=== PATIENT | female | born 1940 | race Caucasian/White ===

== ENCOUNTER 2023-04-08 16:32 | Observation (INO) | payer OTHER ==
[2023-04-08] MEDS ORDERED: ACETAMINOPHEN 500 MG TABLET (FP) PO ONE (17:30)
[2023-04-08] MEDS ORDERED: ACETAMINOPHEN 1000 MG/100 ML BAG IVPB ONE (18:30)
[2023-04-08] MEDS ORDERED: ACETAMINOPHEN INJECTION 100 ML IVPB ONE (18:30)
[2023-04-08 19:03] LABS: BASO % 0.8 % (0-2.0); EOS % 2.7 % (0-4.5); HEMATOCRIT 39.4 % (32.4-45.2); LYMPH % 21.4 % (8-40); MCH 29.3 pg (25.7-33.7); MCHC 33.1 g/dl (32.0-36.0); MEAN CELL VOLUME 88.4 fl (80-96); MEAN PLT VOLUME 8.5 fl (7.5-11.1); NEUT % 68.1 % (42.8-82.8); PLATELET COUNT 225 10^3/uL (134-434); RBC 4.45 M/mm3 (3.60-5.2); RDW 14.3 % (11.6-15.6); WHITE BLOOD COUNT 6.4 K/mm3 (4.0-10.0)
[2023-04-08 19:10] LABS: INR 0.97 (0.83-1.09); PROTHROMBIN TIME (PATIENT) 11.2 SEC (9.7-13.0)
[2023-04-08 19:12] LABS: ACTIVATED PTT 34.3 SECONDS (25.2-36.5)
[2023-04-08 19:35] LABS: CALCIUM 9.1 mg/dL (8.5-10.1)
[2023-04-08 19:36] LABS: BLOOD UREA NITROGEN 18.2 mg/dL (7-18); MAGNESIUM 2.5 mg/dL (1.8-2.4)
[2023-04-08 19:39] LABS: PHOSPHOROUS 3.3 mg/dL (2.5-4.9)
[2023-04-08 19:41] LABS: BILIRUBIN,TOTAL 0.3 mg/dL (0.2-1)
[2023-04-08] MEDS ORDERED: DIPHTH,PERTUSS(ACELL),TET 0.5 ML DISP.SYRIN IM ONE ×2 (19:47→20:44)
[2023-04-08 20:01] LABS: EPI CELLS 5 /uL (0-25.1); HYALINE CASTS 0 /uL (0-3.1); URINE APPEARANCE CLEAR; URINE BACTERIA 177 /uL (0-1359); URINE BILIRUBIN NEGATIVE (NEGATIVE); URINE COLOR YELLOW; URINE GLUCOSE (UA) NEGATIVE (NEGATIVE); URINE KETONE NEGATIVE (NEGATIVE); URINE LEUK ESTERASE 3+ (NEGATIVE); URINE NITRITE NEGATIVE (NEGATIVE); URINE PROTEIN NEGATIVE (NEGATIVE); URINE RBC 7 /uL (0-23.9); URINE UROBILINOGEN 0.2 mg/dL (0.2-1.0); URINE WBC 133 /uL (0-25.8)
[2023-04-08] MEDS ORDERED: NITROFURANTOIN MACROCRYSTAL 50 MG CAPSULE (FP) PO ONE (20:30)
[2023-04-08] MEDS ORDERED: NITROFURANTOIN MACROCRYSTAL 50 MG CAPSULE (FP) ONE (20:44)
[2023-04-09] MEDS ORDERED: SODIUM CHLORIDE 1,000 ML IV SCH (00:45)
[2023-04-09] MEDS ORDERED: LEVOTHYROXINE NA 75 MCG TABLET (FP) ONE (07:19)
[2023-04-09] MEDS: LEVOTHYROXINE NA 75 MCG TABLET (FP) PO SCH (07:22)
[2023-04-09] MEDS ORDERED: CEFTRIAXONE 1 GM/50 ML BAG ONE (09:48)
[2023-04-09] MEDS: ENOXAPARIN NA (PORCINE) 40 MG/0.4 ML DISP.SYRIN SQ SCH (09:57)
[2023-04-09] MEDS: CEFTRIAXONE 1 GM in DEXTROSE 5%-WATER - 50 ML IVPB SCH (09:57)
[2023-04-09] MEDS: SERTRALINE HCL 50 MG TABLET (FP) PO SCH (09:57)
[2023-04-09] MEDS: TOPIRAMATE 25 MG TABLET PO SCH ×2 (09:57→21:56)
[2023-04-09] MEDS: metoPROLOL SUCCINATE 25 MG TAB.SR.24H (FP) PO SCH (09:57)
[2023-04-09 11:15] LABS: HEMATOCRIT 36.7 % (32.4-45.2); HEMOGLOBIN 12.3 GM/dL (10.7-15.3); MCH 29.8 pg (25.7-33.7); MCHC 33.6 g/dl (32.0-36.0); MEAN CELL VOLUME 88.5 fl (80-96); MEAN PLT VOLUME 8.3 fl (7.5-11.1); PLATELET COUNT 208 10^3/uL (134-434); RBC 4.15 M/mm3 (3.60-5.2); RDW 14.2 % (11.6-15.6); WHITE BLOOD COUNT 4.4 K/mm3 (4.0-10.0)
[2023-04-09 12:01] LABS: POTASSIUM 3.9 mmol/L (3.5-5.1)
[2023-04-09 12:04] LABS: ALBUMIN 3.5 g/dl (3.4-5.0); BLOOD UREA NITROGEN 15.3 mg/dL (7-18); CALCIUM 8.7 mg/dL (8.5-10.1); MAGNESIUM 2.3 mg/dL (1.8-2.4)
[2023-04-09 12:07] LABS: CREATININE 0.9 mg/dL (0.55-1.3); PHOSPHOROUS 3.1 mg/dL (2.5-4.9)
[2023-04-09 12:08] LABS: BILIRUBIN,TOTAL 0.4 mg/dL (0.2-1); TOT PROT 6.6 g/dl (6.4-8.2)
[2023-04-09 13:01] VITALS: BMI 25.7
[2023-04-09] MEDS: ACETAMINOPHEN 325 MG TABLET (FP) PO PRN (18:19)
[2023-04-10] MEDS: LEVOTHYROXINE NA 75 MCG TABLET (FP) PO SCH (06:20)
[2023-04-10 09:22] LABS: CHOLESTEROL 229 mg/dL (50-200)
[2023-04-10 09:23] LABS: LDL CHOLESTEROL (ONLY SJRH) 127 mg/dL (5-100)
[2023-04-10] MEDS: CEFTRIAXONE 1 GM in DEXTROSE 5%-WATER - 50 ML IVPB SCH (09:25)
[2023-04-10] MEDS: ENOXAPARIN NA (PORCINE) 40 MG/0.4 ML DISP.SYRIN SQ SCH (09:25)
[2023-04-10 09:26] LABS: HDL CHOLESTEROL 71 mg/dL (40-60)
[2023-04-10] MEDS: ACETAMINOPHEN 325 MG TABLET (FP) PO PRN (09:26)
[2023-04-10] MEDS: metoPROLOL SUCCINATE 25 MG TAB.SR.24H (FP) PO SCH (09:26)
[2023-04-10] MEDS: TOPIRAMATE 25 MG TABLET PO SCH ×2 (09:26→21:31)
[2023-04-10] MEDS: SERTRALINE HCL 50 MG TABLET (FP) PO SCH (09:26)
[2023-04-10] MEDS: RIZATRIPTAN 5 MG PO PRN (18:46)
[2023-04-10] MEDS: ATORVASTATIN CA 20 MG TABLET (FP) PO SCH (21:31)
[2023-04-11] MEDS: LEVOTHYROXINE NA 75 MCG TABLET (FP) PO SCH (06:17)
[2023-04-11 09:04] LABS: HEMATOCRIT 37.5 % (32.4-45.2); HEMOGLOBIN 12.2 GM/dL (10.7-15.3); MCH 29.3 pg (25.7-33.7); MCHC 32.5 g/dl (32.0-36.0); MEAN CELL VOLUME 90.1 fl (80-96); MEAN PLT VOLUME 8.4 fl (7.5-11.1); PLATELET COUNT 218 10^3/uL (134-434); RBC 4.16 M/mm3 (3.60-5.2); RDW 14.1 % (11.6-15.6); WHITE BLOOD COUNT 3.4 K/mm3 (4.0-10.0)
[2023-04-11] MEDS: ENOXAPARIN NA (PORCINE) 40 MG/0.4 ML DISP.SYRIN SQ SCH (09:16)
[2023-04-11] MEDS: CEFTRIAXONE 1 GM in DEXTROSE 5%-WATER - 50 ML IVPB SCH (09:16)
[2023-04-11] MEDS: SERTRALINE HCL 50 MG TABLET (FP) PO SCH (09:17)
[2023-04-11] MEDS: TOPIRAMATE 25 MG TABLET PO SCH ×2 (09:17→21:08)
[2023-04-11] MEDS: metoPROLOL SUCCINATE 25 MG TAB.SR.24H (FP) PO SCH (09:17)
[2023-04-11 09:25] LABS: POTASSIUM 4.5 mmol/L (3.5-5.1)
[2023-04-11 09:32] LABS: CALCIUM 8.3 mg/dL (8.5-10.1)
[2023-04-11 09:35] LABS: CREATININE 0.9 mg/dL (0.55-1.3)
[2023-04-11] MEDS: ACETAMINOPHEN 325 MG TABLET (FP) PO PRN ×2 (10:55→18:56)
[2023-04-11 18:44] VITALS: RESP 18
[2023-04-11] MEDS: ATORVASTATIN CA 20 MG TABLET (FP) PO SCH (21:08)
[2023-04-12] MEDS: RIZATRIPTAN 5 MG PO PRN (05:47)
[2023-04-12] MEDS: CEFTRIAXONE 1 GM in DEXTROSE 5%-WATER - 50 ML IVPB SCH (10:47)
[2023-04-12] MEDS: SERTRALINE HCL 50 MG TABLET (FP) PO SCH (14:14)
[2023-04-12] MEDS: ENOXAPARIN NA (PORCINE) 40 MG/0.4 ML DISP.SYRIN SQ SCH (14:15)
[2023-04-12] MEDS: metoPROLOL SUCCINATE 25 MG TAB.SR.24H (FP) PO SCH (14:15)
[2023-04-12] MEDS: LEVOTHYROXINE NA 75 MCG TABLET (FP) PO SCH (14:15)
[2023-04-12] MEDS: TOPIRAMATE 25 MG TABLET PO SCH (14:15)
[2023-04-12 18:32] VITALS: BP 141/98; PULSE 79; TEMP 98.8
== END 2023-04-12 18:00 | disposition home or self-care (01) ==
LOC: JER 16:32 → UNDOADMOB 18:41 → JERBED 18:41 → OBSVTOIN 04-09 00:11 → INTOOBSV 04-09 00:11 → JERBED 04-09 10:33 → J5S 04-09 10:36
PROVIDERS: ADMIT Internal Medicine
PROC: 3E033NZ Introduction of Analgesics, Hypnotics, Sedatives into Peripheral Vein, Percutaneous Approach (ICD-10-PCS; principal; 2023-04-09)
PROC: 3E0234Z Introduction of Serum, Toxoid and Vaccine into Muscle, Percutaneous Approach (ICD-10-PCS; 2023-04-09)
PROC: 3E0337Z Introduction of Electrolytic and Water Balance Substance into Peripheral Vein, Percutaneous Approach (ICD-10-PCS; 2023-04-09)
DX: S05.11XA Contusion of eyeball and orbital tissues, right eye, initial encounter (principal); G43.909 Migraine, unspecified, not intractable, without status migrainosus; N39.0 Urinary tract infection, site not specified; R55 Syncope and collapse; R07.1 Chest pain on breathing; R06.00 Dyspnea, unspecified; Z91.09 Other allergy status, other than to drugs and biological substances; W18.39XA Other fall on same level, initial encounter; Y93.89 Activity, other specified; Y92.410 Unspecified street and highway as the place of occurrence of the external cause; Z23 Encounter for immunization; F41.8 Other specified anxiety disorders; I10 Essential (primary) hypertension; H91.90 Unspecified hearing loss, unspecified ear
CPT/HCPCS: 0241U-QW; 36415; 70450-TC; 70480-TC; 71045-TC-FY; 71101-TC-LT-FY; 72125-TC; 80048; 80053; 80061; 81003; 83735; 83880; 84100; 84436; 84443; 84484; 85025; 85027; 85610; 85730; 86850; 86900; 86901; 87086; 90471; 90715; 93005; 93010; 93225; 93226; 93306-TC; 93880-TC; 96361; 96365; 96375; 97116-GP; 97162-GP; 99285-25; G0378

== ENCOUNTER 2023-06-05 06:55 | Observation (INO) | payer OTHER ==
[2023-06-05] MEDS ORDERED: SODIUM CHLORIDE 1,000 ML IV STA (07:37)
[2023-06-05] MEDS ORDERED: FAMOTIDINE 20 MG/50 ML IVPB 20 MG/50 ML MG IVPB ONE ×3 (07:37→09:02)
[2023-06-05] MEDS ORDERED: ONDANSETRON 4 MG/2 ML VIAL IVPUSH ONE (07:44)
[2023-06-05] MEDS ORDERED: ONDANSETRON 4 MG/2 ML VIAL ONE ×2 (08:06→09:01)
[2023-06-05 09:40] LABS: POTASSIUM 4.3 mmol/L (3.5-5.1)
[2023-06-05 09:42] LABS: CALCIUM 9.1 mg/dL (8.5-10.1)
[2023-06-05 09:43] LABS: ALBUMIN 3.5 g/dl (3.4-5.0); BLOOD UREA NITROGEN 23.3 mg/dL (7-18)
[2023-06-05 09:44] LABS: INR 0.95 (0.83-1.09)
[2023-06-05 09:47] LABS: ACTIVATED PTT 28.6 SECONDS (25.2-36.5); BILIRUBIN,TOTAL 0.4 mg/dL (0.2-1); TOT PROT 6.7 g/dl (6.4-8.2)
[2023-06-05 09:53] LABS: HEMATOCRIT 40.5 % (32.4-45.2); HEMOGLOBIN 13.4 GM/dL (10.7-15.3); MCH 29.6 pg (25.7-33.7); MEAN CELL VOLUME 89.8 fl (80-96); MEAN PLT VOLUME 8.4 fl (7.5-11.1); PLATELET COUNT 209 10^3/uL (134-434); RBC 4.51 M/mm3 (3.60-5.2); RDW 14.7 % (11.6-15.6); WHITE BLOOD COUNT 7.2 K/mm3 (4.0-10.0)
[2023-06-05 10:40] LABS: ANISOCYTOSIS 2+; MACROCYTOSIS 0
[2023-06-05] MEDS ORDERED: ENOXAPARIN NA (PORCINE) 40 MG/0.4 ML DISP.SYRIN SQ ONE ×2 (16:59→17:14)
[2023-06-05] MEDS ORDERED: CEFTRIAXONE 1 GM/50 ML BAG ONE ×2 (16:59→17:14)
[2023-06-05] MEDS: CEFTRIAXONE 1 GM in DEXTROSE 5%-WATER - 50 ML IVPB SCH (17:29)
[2023-06-05] MEDS: ENOXAPARIN NA (PORCINE) 40 MG/0.4 ML DISP.SYRIN SQ SCH (17:29)
[2023-06-05] MEDS ORDERED: SUCRALFATE 1 GM/10 ML UNIT DOSE CUPS PO SCH (22:00)
[2023-06-06] MEDS ORDERED: TOPIRAMATE 25 MG TABLET PO SCH (08:00)
[2023-06-06] MEDS ORDERED: CEFTRIAXONE 1 GM/50 ML BAG ONE (09:04)
[2023-06-06] MEDS ORDERED: buPROPion HCL 100 MG TABLET ONE (09:04)
[2023-06-06] MEDS ORDERED: ENOXAPARIN NA (PORCINE) 40 MG/0.4 ML DISP.SYRIN SQ ONE (09:04)
[2023-06-06] MEDS ORDERED: TOPIRAMATE 25 MG TABLET ONE (09:04)
[2023-06-06] MEDS ORDERED: METOPROLOL TARTRATE 25 MG TABLET (FP) ONE (09:36)
[2023-06-06] MEDS ORDERED: LEVOTHYROXINE NA 75 MCG TABLET (FP) ONE (09:36)
[2023-06-06] MEDS: CEFTRIAXONE 1 GM in DEXTROSE 5%-WATER - 50 ML IVPB SCH (09:38)
[2023-06-06] MEDS: SUCRALFATE 1 GM/10 ML UNIT DOSE CUPS PO SCH ×2 (09:49→16:43)
[2023-06-06] MEDS: ENOXAPARIN NA (PORCINE) 40 MG/0.4 ML DISP.SYRIN SQ SCH (09:49)
[2023-06-06] MEDS: LEVOTHYROXINE NA 75 MCG TABLET (FP) PO SCH (09:49)
[2023-06-06] MEDS: metoPROLOL SUCCINATE 25 MG TAB.SR.24H (FP) PO SCH (09:49)
[2023-06-06] MEDS ORDERED: ACETAMINOPHEN 1000 MG/100 ML BAG IVPB ONE (21:21)
[2023-06-06] MEDS ORDERED: ACETAMINOPHEN INJECTION 100 ML IVPB ONE (21:32)
[2023-06-07] MEDS: LEVOTHYROXINE NA 75 MCG TABLET (FP) PO SCH (06:34)
[2023-06-07] MEDS: SUCRALFATE 1 GM/10 ML UNIT DOSE CUPS PO SCH ×2 (06:35→17:41)
[2023-06-07] MEDS: ENOXAPARIN NA (PORCINE) 40 MG/0.4 ML DISP.SYRIN SQ SCH (09:46)
[2023-06-07] MEDS: metoPROLOL SUCCINATE 25 MG TAB.SR.24H (FP) PO SCH (09:47)
[2023-06-07] MEDS: CEFTRIAXONE 1 GM in DEXTROSE 5%-WATER - 50 ML IVPB SCH (09:47)
[2023-06-07] MEDS: DEXTROSE 5%-0.45% SALINE 1,000 ML IV SCH (10:15)
[2023-06-07 10:47] LABS: BASO % 0.5 % (0-2.0); EOS % 3.8 % (0-4.5); HEMATOCRIT 37.3 % (32.4-45.2); HEMOGLOBIN 12.3 GM/dL (10.7-15.3); LYMPH % 23.4 % (8-40); MCH 29.7 pg (25.7-33.7); MCHC 33.1 g/dl (32.0-36.0); MEAN CELL VOLUME 89.8 fl (80-96); MEAN PLT VOLUME 8.4 fl (7.5-11.1); MONO % 9.5 % (3.8-10.2); NEUT % 62.8 % (42.8-82.8); PLATELET COUNT 208 10^3/uL (134-434); RBC 4.16 M/mm3 (3.60-5.2); WHITE BLOOD COUNT 3.7 K/mm3 (4.0-10.0)
[2023-06-07 11:04] LABS: POTASSIUM 3.6 mmol/L (3.5-5.1)
[2023-06-07 11:10] LABS: BLOOD UREA NITROGEN 13.8 mg/dL (7-18); CALCIUM 8.3 mg/dL (8.5-10.1)
[2023-06-07 11:13] LABS: CREATININE 0.7 mg/dL (0.55-1.3)
[2023-06-07 11:15] LABS: BILIRUBIN,TOTAL 0.1 mg/dL (0.2-1)
[2023-06-07] MEDS: VANCOMYCIN ORAL SOLUTION 125 MG/2.5 ML PO SCH ×2 (12:21→17:42)
[2023-06-07 14:59] VITALS: BMI 21.9
[2023-06-07 15:31] LABS: EPI CELLS 11 /uL (0-25.1); HYALINE CASTS 0 /uL (0-3.1); PH,URINE 6.5 (5.0-8.0); URINE APPEARANCE CLEAR; URINE BACTERIA 5 /uL (0-1359); URINE BILIRUBIN NEGATIVE (NEGATIVE); URINE COLOR YELLOW; URINE GLUCOSE (UA) NEGATIVE (NEGATIVE); URINE KETONE NEGATIVE (NEGATIVE); URINE LEUK ESTERASE TRACE (NEGATIVE); URINE NITRITE NEGATIVE (NEGATIVE); URINE PROTEIN NEGATIVE (NEGATIVE); URINE RBC 15 /uL (0-23.9); URINE UROBILINOGEN 0.2 mg/dL (0.2-1.0); URINE WBC 19 /uL (0-25.8)
[2023-06-08] MEDS: VANCOMYCIN ORAL SOLUTION 125 MG/2.5 ML PO SCH ×3 (00:06→11:33)
[2023-06-08] MEDS: DEXTROSE 5%-0.45% SALINE 1,000 ML IV SCH ×2 (02:14→09:30)
[2023-06-08] MEDS: LEVOTHYROXINE NA 75 MCG TABLET (FP) PO SCH (06:45)
[2023-06-08] MEDS: SUCRALFATE 1 GM/10 ML UNIT DOSE CUPS PO SCH (06:45)
[2023-06-08] MEDS: metoPROLOL SUCCINATE 25 MG TAB.SR.24H (FP) PO SCH (09:27)
[2023-06-08] MEDS: ENOXAPARIN NA (PORCINE) 40 MG/0.4 ML DISP.SYRIN SQ SCH (09:27)
[2023-06-08 10:39] LABS: BASO % 0.7 % (0-2.0); EOS % 4.2 % (0-4.5); HEMOGLOBIN 12.4 GM/dL (10.7-15.3); LYMPH % 34.4 % (8-40); MCH 29.5 pg (25.7-33.7); MCHC 32.6 g/dl (32.0-36.0); MEAN CELL VOLUME 90.6 fl (80-96); MEAN PLT VOLUME 8.6 fl (7.5-11.1); MONO % 10.5 % (3.8-10.2); NEUT % 50.2 % (42.8-82.8); PLATELET COUNT 205 10^3/uL (134-434); RBC 4.19 M/mm3 (3.60-5.2); RDW 14.2 % (11.6-15.6); WHITE BLOOD COUNT 3.2 K/mm3 (4.0-10.0)
[2023-06-08 10:53] LABS: POTASSIUM 3.6 mmol/L (3.5-5.1)
[2023-06-08 10:56] LABS: BLOOD UREA NITROGEN 8.8 mg/dL (7-18); CALCIUM 8.1 mg/dL (8.5-10.1)
[2023-06-08 11:00] LABS: CREATININE 0.7 mg/dL (0.55-1.3)
[2023-06-08] MEDS ORDERED: INSULIN (NOVOLOG) ASPART 100 UNITS/ML 10ML VIAL ONE (11:32)
[2023-06-08 14:22] VITALS: BP 132/62; PULSE 72; RESP 20; TEMP 98.2
== END 2023-06-08 14:23 | disposition home or self-care (01) ==
LOC: JER 06:55 → JERBED 14:40 → J8W 06-06 23:50
PROVIDERS: ADMIT Internal Medicine; ATTEND Nurse Practitioner Family
PROC: 3E033GC Introduction of Other Therapeutic Substance into Peripheral Vein, Percutaneous Approach (ICD-10-PCS; principal; 2023-06-05)
PROC: 3E013GC Introduction of Other Therapeutic Substance into Subcutaneous Tissue, Percutaneous Approach (ICD-10-PCS; 2023-06-05)
PROC: 3E0337Z Introduction of Electrolytic and Water Balance Substance into Peripheral Vein, Percutaneous Approach (ICD-10-PCS; 2023-06-05)
DX: K52.9 Noninfective gastroenteritis and colitis, unspecified (principal); R53.1 Weakness; I10 Essential (primary) hypertension; F41.9 Anxiety disorder, unspecified; F32.A Depression, unspecified; H91.90 Unspecified hearing loss, unspecified ear; R10.9 Unspecified abdominal pain; N39.0 Urinary tract infection, site not specified; R73.9 Hyperglycemia, unspecified; A08.4 Viral intestinal infection, unspecified; R55 Syncope and collapse; Z80.0 Family history of malignant neoplasm of digestive organs; E03.9 Hypothyroidism, unspecified; D73.5 Infarction of spleen; A04.72 Enterocolitis due to Clostridium difficile, not specified as recurrent
CPT/HCPCS: 0241U-QW; 36415; 71045-TC-FY; 74177-TC; 80048; 80053; 81003; 82378; 83605; 83690; 84484; 85025; 85610; 85730; 86140; 87045; 87046; 87086; 87205; 87209; 87324; 87449; 87493; 93005; 93010; 96365; 96372; 96375; 99285-25; G0378; Q9967

== ENCOUNTER 2023-06-28 13:14 | Emergency (ER) | payer OTHER ==
[2023-06-28 14:05] VITALS: BMI 22.6
[2023-06-28] MEDS: LACTATED RINGERS SOLUTION 1000 ML INFUS.BAG IV ONE (17:15)
[2023-06-28 17:36] VITALS: BP 110/72; PULSE 88; RESP 19; TEMP 98.9
== END 2023-06-28 17:37 | disposition home or self-care (01) ==
LOC: JER 13:14
DX: M25.561 Pain in right knee (principal); M25.562 Pain in left knee; U07.1 COVID-19; W01.0XXA Fall on same level from slipping, tripping and stumbling without subsequent striking against object, initial encounter; Y92.009 Unspecified place in unspecified non-institutional (private) residence as the place of occurrence of the external cause
CPT/HCPCS: 0241U-QW; 73560-TC-LT-FY; 73560-TC-RT-FY; 99284-25

== ENCOUNTER 2023-06-30 10:41 | Inpatient (IN) | payer OTHER ==
[2023-06-30 12:29] LABS: BASO % 0.5 % (0-2.0); EOS % 1.8 % (0-4.5); HEMATOCRIT 35.5 % (32.4-45.2); HEMOGLOBIN 12.1 GM/dL (10.7-15.3); LYMPH % 15.8 % (8-40); MCH 30.5 pg (25.7-33.7); MCHC 34.2 g/dl (32.0-36.0); MEAN CELL VOLUME 89.2 fl (80-96); MEAN PLT VOLUME 8.8 fl (7.5-11.1); MONO % 9.3 % (3.8-10.2); NEUT % 72.6 % (42.8-82.8); PLATELET COUNT 180 10^3/uL (134-434); RBC 3.98 M/mm3 (3.60-5.2); RDW 14.1 % (11.6-15.6); WHITE BLOOD COUNT 4.2 K/mm3 (4.0-10.0)
[2023-06-30 13:22] LABS: POTASSIUM 4.8 mmol/L (3.5-5.1)
[2023-06-30 13:28] LABS: ALBUMIN 3.2 g/dl (3.4-5.0); BLOOD UREA NITROGEN 9.3 mg/dL (7-18); CALCIUM 8.7 mg/dL (8.5-10.1)
[2023-06-30 13:32] LABS: CREATININE 0.8 mg/dL (0.55-1.3)
[2023-06-30 13:33] LABS: TOT PROT 6.6 g/dl (6.4-8.2)
[2023-06-30 13:37] LABS: N-TERMINAL BNP 170.6 pg/ml (5-450)
[2023-06-30 13:39] LABS: BILIRUBIN,TOTAL 0.2 mg/dL (0.2-1)
[2023-06-30] MEDS: DEXTROSE 5%-LACTATED RINGERS 1,000 ML IV SCH (17:13)
[2023-06-30] MEDS ORDERED: RIZATRIPTAN BENZOATE 5 MG PO PRN (18:22)
[2023-06-30] MEDS: TOPIRAMATE 25 MG TABLET PO SCH (22:28)
[2023-07-01] MEDS: LEVOTHYROXINE NA 75 MCG TABLET (FP) PO SCH (06:05)
[2023-07-01 08:44] LABS: BASO % 0.8 % (0-2.0); EOS % 2.6 % (0-4.5); HEMATOCRIT 34.8 % (32.4-45.2); HEMOGLOBIN 11.4 GM/dL (10.7-15.3); LYMPH % 26.1 % (8-40); MCH 29.4 pg (25.7-33.7); MCHC 32.9 g/dl (32.0-36.0); MEAN CELL VOLUME 89.6 fl (80-96); MEAN PLT VOLUME 8.8 fl (7.5-11.1); MONO % 12.5 % (3.8-10.2); PLATELET COUNT 178 10^3/uL (134-434); RBC 3.88 M/mm3 (3.60-5.2); RDW 13.7 % (11.6-15.6)
[2023-07-01 08:52] LABS: POTASSIUM 4.1 mmol/L (3.5-5.1)
[2023-07-01 08:55] LABS: BLOOD UREA NITROGEN 8.2 mg/dL (7-18); CALCIUM 8.8 mg/dL (8.5-10.1)
[2023-07-01 08:56] LABS: ALBUMIN 2.7 g/dl (3.4-5.0)
[2023-07-01 08:59] LABS: CREATININE 0.8 mg/dL (0.55-1.3); PHOSPHOROUS 3.1 mg/dL (2.5-4.9)
[2023-07-01 09:01] LABS: BILIRUBIN,TOTAL 0.2 mg/dL (0.2-1); TOT PROT 5.8 g/dl (6.4-8.2)
[2023-07-01] MEDS: metoPROLOL SUCCINATE 25 MG TAB.SR.24H (FP) PO SCH (10:10)
[2023-07-01] MEDS: ENOXAPARIN NA (PORCINE) 40 MG/0.4 ML DISP.SYRIN SQ SCH (10:10)
[2023-07-01] MEDS: SERTRALINE HCL 50 MG TABLET (FP) PO SCH (10:10)
[2023-07-01] MEDS: TOPIRAMATE 25 MG TABLET PO SCH (10:10)
[2023-07-01] MEDS: FLU VACCINE (FLULAVAL) PF 60 MCG/0.5 ML SYRINGE 2023-2024 IM ONE (10:46)
[2023-07-01 11:19] LABS: EPI CELLS 22 /uL (0-25.1); HYALINE CASTS 1 /uL (0-3.1); URINE APPEARANCE CLOUDY; URINE BACTERIA 48 /uL (0-1359); URINE BILIRUBIN NEGATIVE (NEGATIVE); URINE COLOR YELLOW; URINE GLUCOSE (UA) NEGATIVE (NEGATIVE); URINE KETONE NEGATIVE (NEGATIVE); URINE LEUK ESTERASE 2+ (NEGATIVE); URINE NITRITE NEGATIVE (NEGATIVE); URINE PROTEIN NEGATIVE (NEGATIVE); URINE RBC 17 /uL (0-23.9); URINE UROBILINOGEN 0.2 mg/dL (0.2-1.0); URINE WBC 57 /uL (0-25.8)
[2023-07-01] MEDS ORDERED: KETOROLAC TROMETHAMINE 15 MG/ML VIAL IM PRN (13:36)
[2023-07-01] MEDS: FAMOTIDINE 10 MG TABLET PO SCH (13:52)
[2023-07-01] MEDS: ACETAMINOPHEN 325 MG TABLET (FP) PO PRN (13:52)
[2023-07-03 08:48] LABS: BASO % 0.4 % (0-2.0); HEMATOCRIT 33.8 % (32.4-45.2); HEMOGLOBIN 11.3 GM/dL (10.7-15.3); LYMPH % 28.7 % (8-40); MCH 29.9 pg (25.7-33.7); MCHC 33.5 g/dl (32.0-36.0); MEAN CELL VOLUME 89.3 fl (80-96); MEAN PLT VOLUME 8.7 fl (7.5-11.1); MONO % 10.1 % (3.8-10.2); NEUT % 56.8 % (42.8-82.8); PLATELET COUNT 197 10^3/uL (134-434); RBC 3.78 M/mm3 (3.60-5.2); RDW 13.3 % (11.6-15.6); WHITE BLOOD COUNT 3.6 K/mm3 (4.0-10.0)
[2023-07-03 09:03] LABS: POTASSIUM 4.4 mmol/L (3.5-5.1)
[2023-07-03 09:08] LABS: CALCIUM 8.3 mg/dL (8.5-10.1)
[2023-07-03 09:12] LABS: CREATININE 0.8 mg/dL (0.55-1.3)
[2023-07-03] MEDS: POLYETHYLENE GLYCOL (HEALTHYLAX) 3350 17 GM PACKET PO SCH (09:55)
[2023-07-03] MEDS: SUMAtriptan SUCCINATE 25 MG TABLET PO PRN (09:55)
[2023-07-04] MEDS ORDERED: KETOROLAC TROMETHAMINE 15 MG/ML VIAL IVPUSH PRN (12:29)
[2023-07-04 12:36] LABS: PH,URINE 6.5 (5.0-8.0); URINE APPEARANCE CLEAR; URINE BILIRUBIN NEGATIVE (NEGATIVE); URINE COLOR YELLOW; URINE GLUCOSE (UA) NEGATIVE (NEGATIVE); URINE KETONE 1+ (NEGATIVE); URINE LEUK ESTERASE NEGATIVE (NEGATIVE); URINE NITRITE NEGATIVE (NEGATIVE); URINE PROTEIN NEGATIVE (NEGATIVE); URINE UROBILINOGEN 0.2 mg/dL (0.2-1.0)
[2023-07-04] MEDS ORDERED: BISACODYL 10 MG SUPP.RECT PR PRN (15:30)
[2023-07-04] MEDS: DEXTROSE 5%-LACTATED RINGERS 1,000 ML IV SCH (16:10)
[2023-07-04] MEDS: DEXAMETHASONE SOD PHOSPHATE 10 MG/1 ML VIAL IVPUSH ONE (22:45)
[2023-07-05 01:04] LABS: INR 1.22 (0.83-1.09); PROTHROMBIN TIME (PATIENT) 14.1 SEC (9.7-13.0)
[2023-07-05 01:07] LABS: ACTIVATED PTT 31.6 SECONDS (25.2-36.5)
[2023-07-05 04:00] LABS: BASO % 0.5 % (0-2.0); EOS % 0.1 % (0-4.5); HEMATOCRIT 33.3 % (32.4-45.2); HEMOGLOBIN 11.4 GM/dL (10.7-15.3); MCH 30.1 pg (25.7-33.7); MCHC 34.3 g/dl (32.0-36.0); MEAN CELL VOLUME 87.6 fl (80-96); MEAN PLT VOLUME 8.5 fl (7.5-11.1); MONO % 3.9 % (3.8-10.2); NEUT % 88.5 % (42.8-82.8); PLATELET COUNT 231 10^3/uL (134-434); RDW 13.7 % (11.6-15.6); WHITE BLOOD COUNT 6.6 K/mm3 (4.0-10.0)
[2023-07-05 04:16] LABS: POTASSIUM 4.1 mmol/L (3.5-5.1)
[2023-07-05 04:18] LABS: ALBUMIN 2.3 g/dl (3.4-5.0); BLOOD UREA NITROGEN 13.9 mg/dL (7-18); CALCIUM 8.3 mg/dL (8.5-10.1)
[2023-07-05] MEDS: MANNITOL 25% 12.5 GM/50 ML VIAL IVPB SCH (04:20)
[2023-07-05 04:21] LABS: CREATININE 0.7 mg/dL (0.55-1.3)
[2023-07-05] MEDS: levETIRAcetam 500 MG/5 ML INJECTION VIAL IVPB SCH (04:21)
[2023-07-05] MEDS: DEXAMETHASONE SOD PHOSPHATE 4 MG/1 ML VIAL IVPUSH SCH (04:21)
[2023-07-05 04:23] LABS: BILIRUBIN,TOTAL 0.4 mg/dL (0.2-1)
[2023-07-05 08:22] LABS: HEMATOCRIT 34.1 % (32.4-45.2); HEMOGLOBIN 11.6 GM/dL (10.7-15.3); LYMPH % 8.2 % (8-40); MCH 30.2 pg (25.7-33.7); MEAN CELL VOLUME 88.8 fl (80-96); MEAN PLT VOLUME 8.4 fl (7.5-11.1); MONO % 3.4 % (3.8-10.2); NEUT % 88.4 % (42.8-82.8); PLATELET COUNT 222 10^3/uL (134-434); RBC 3.84 M/mm3 (3.60-5.2); RDW 13.2 % (11.6-15.6); WHITE BLOOD COUNT 5.2 K/mm3 (4.0-10.0)
[2023-07-05] MEDS ORDERED: MUPIROCIN 2% TOPICAL OINTMENT FOR DECOLONIZATION NS SCH (10:00)
[2023-07-05] MEDS: MUPIROCIN 2% TOPICAL OINTMENT FOR DECOLONIZATION NS SCH (10:09)
[2023-07-05] MEDS: PANTOPRAZOLE SODIUM 40 MG VIAL IVPUSH SCH (10:10)
[2023-07-05] MEDS ORDERED: ceFAZolin SODIUM 1 GM VIAL ONE ×2 (13:37→16:26)
[2023-07-05] MEDS ORDERED: LIDOCAINE 1%/EPI 1:100000 (20 ML MULTI DOSE VIAL) ONE (14:15)
[2023-07-05] MEDS ORDERED: ePHEDrine SULFATE 50 MG/1 ML AMPULE ONE (14:42)
[2023-07-05] MEDS ORDERED: PROPOFOL 40 ML ONE (14:49)
[2023-07-05] MEDS ORDERED: ROCURONIUM BROMIDE 50 MG/5 ML SYRINGE ONE (14:50)
[2023-07-05] MEDS ORDERED: SUGAMMADEX SODIUM 200 MG/2 ML VIAL ONE (14:50)
[2023-07-05] MEDS ORDERED: SUCCINYLCHOLINE CHLORIDE 200 MG/10 ML SYRINGE ONE (16:04)
[2023-07-05] MEDS: ceFAZolin SODIUM 1 GM VIAL IVPB ONE ×3 (16:26→16:46)
[2023-07-05] MEDS ORDERED: ONDANSETRON 4 MG/2 ML VIAL ONE (16:55)
[2023-07-05] MEDS: THROMBIN (BOVINE) 5,000 UNIT VIAL TP ONE (17:02)
[2023-07-05] MEDS ORDERED: BACITRACIN ZINC 15 GM TUBE TOPICAL OINTMENT ONE (17:25)
[2023-07-05] MEDS: SODIUM CHLORIDE 1,000 ML IV SCH (18:47)
[2023-07-05] MEDS: ACETAMINOPHEN 1000 MG/100 ML BAG IVPB PRN (19:25)
[2023-07-05] MEDS: CHLORHEXIDINE GLUCONATE 4% CLEANSER FOR DECOLONIZATION TP SCH (21:07)
[2023-07-05] MEDS ORDERED: CHLORHEXIDINE GLUCONATE 4% CLEANSER FOR DECOLONIZATION TP SCH (22:00)
[2023-07-05] MEDS ORDERED: CODEINE SO4 30 MG TABLET PO PRN (22:44)
[2023-07-05] MEDS ORDERED: ACETAMINOPHEN WITH CODEINE 300MG/30MG TABLET PO PRN (22:44)
[2023-07-05] MEDS ORDERED: FOSPHENYTOIN SODIUM 100 MG/2 ML VIAL IVPB SCH (22:44)
[2023-07-05] MEDS ORDERED: DEXAMETHASONE SOD PHOSPHATE 4 MG/1 ML VIAL IVPUSH SCH (22:44)
[2023-07-05] MEDS ORDERED: BISACODYL 10 MG SUPP.RECT PR PRN (22:44)
[2023-07-05] MEDS ORDERED: ONDANSETRON 4 MG/2 ML VIAL IVPUSH PRN (22:44)
[2023-07-05] MEDS: DOCUSATE SODIUM 100 MG CAPSULE (FP) PO SCH (23:35)
[2023-07-05] MEDS: CEFAZOLIN 1 GM in DEXTROSE 5%-WATER - 50 ML IVPB SCH (23:38)
[2023-07-05] MEDS: D5-NS + 20 MEQ KCL - 20 MEQ/1,000 ML INFUS.BAG IV SCH (23:39)
[2023-07-05] MEDS: ACETAMINOPHEN 325 MG TABLET (FP) PO PRN (23:51)
[2023-07-06] MEDS: levETIRAcetam 500 MG/5 ML INJECTION VIAL IVPB SCH (02:46)
[2023-07-06] MEDS: DEXAMETHASONE SOD PHOSPHATE 4 MG/1 ML VIAL IVPUSH SCH (02:46)
[2023-07-06] MEDS: DEXTROSE 5% IVPB SCH ×2 (03:32→11:59)
[2023-07-06] MEDS: WATER IVPB SCH ×2 (03:32→11:59)
[2023-07-06] MEDS: FOSPHENYTOIN SODIUM IVPB SCH ×2 (03:32→11:59)
[2023-07-06] MEDS: LEVOTHYROXINE NA 75 MCG TABLET (FP) PO SCH (06:37)
[2023-07-06 07:20] LABS: BASO % 0.3 % (0-2.0); HEMATOCRIT 30.8 % (32.4-45.2); HEMOGLOBIN 10.3 GM/dL (10.7-15.3); LYMPH % 6.2 % (8-40); MCH 29.6 pg (25.7-33.7); MCHC 33.4 g/dl (32.0-36.0); MEAN CELL VOLUME 88.6 fl (80-96); MEAN PLT VOLUME 8.3 fl (7.5-11.1); MONO % 3.6 % (3.8-10.2); NEUT % 89.9 % (42.8-82.8); PLATELET COUNT 252 10^3/uL (134-434); RBC 3.48 M/mm3 (3.60-5.2); RDW 13.5 % (11.6-15.6); WHITE BLOOD COUNT 6.9 K/mm3 (4.0-10.0)
[2023-07-06 08:16] LABS: POTASSIUM 3.8 mmol/L (3.5-5.1)
[2023-07-06 08:30] LABS: ALBUMIN 2.1 g/dl (3.4-5.0); CALCIUM 8.1 mg/dL (8.5-10.1); MAGNESIUM 2.1 mg/dL (1.8-2.4)
[2023-07-06 08:33] LABS: CREATININE 0.6 mg/dL (0.55-1.3); PHOSPHOROUS 2.1 mg/dL (2.5-4.9)
[2023-07-06] MEDS: SODIUM CHLORIDE 1,000 ML IV SCH (08:36)
[2023-07-06 08:39] LABS: BILIRUBIN,TOTAL 0.1 mg/dL (0.2-1); TOT PROT 5.3 g/dl (6.4-8.2)
[2023-07-06] MEDS: POLYETHYLENE GLYCOL (HEALTHYLAX) 3350 17 GM PACKET PO SCH (09:43)
[2023-07-06] MEDS: TOPIRAMATE 25 MG TABLET PO SCH ×2 (09:43→21:05)
[2023-07-06] MEDS: PANTOPRAZOLE SODIUM 40 MG VIAL IVPUSH SCH (09:43)
[2023-07-06] MEDS: MUPIROCIN 2% TOPICAL OINTMENT FOR DECOLONIZATION NS SCH (09:43)
[2023-07-06] MEDS: FAMOTIDINE 10 MG TABLET PO SCH (09:43)
[2023-07-06] MEDS: SERTRALINE HCL 50 MG TABLET (FP) PO SCH (09:44)
[2023-07-06] MEDS: metoPROLOL SUCCINATE 25 MG TAB.SR.24H (FP) PO SCH (09:44)
[2023-07-06] MEDS: oxyCODONE HCL 5 MG TABLET PO PRN (12:24)
[2023-07-06] MEDS: ACETAMINOPHEN 1000 MG/100 ML BAG IVPB PRN (23:10)
[2023-07-07 08:31] LABS: HEMATOCRIT 30.7 % (32.4-45.2); HEMOGLOBIN 10.4 GM/dL (10.7-15.3); LYMPH % 12.6 % (8-40); MCHC 33.8 g/dl (32.0-36.0); MEAN CELL VOLUME 88.8 fl (80-96); MONO % 5.7 % (3.8-10.2); NEUT % 81.7 % (42.8-82.8); PLATELET COUNT 311 10^3/uL (134-434); RBC 3.46 M/mm3 (3.60-5.2); RDW 13.4 % (11.6-15.6)
[2023-07-07 08:41] LABS: POTASSIUM 4.3 mmol/L (3.5-5.1)
[2023-07-07 08:47] LABS: BLOOD UREA NITROGEN 14.9 mg/dL (7-18); CALCIUM 8.5 mg/dL (8.5-10.1); MAGNESIUM 2.1 mg/dL (1.8-2.4)
[2023-07-07 08:50] LABS: CREATININE 0.6 mg/dL (0.55-1.3); PHOSPHOROUS 1.8 mg/dL (2.5-4.9)
[2023-07-07 08:51] LABS: TOT PROT 5.3 g/dl (6.4-8.2)
[2023-07-07 08:52] LABS: BILIRUBIN,TOTAL 0.2 mg/dL (0.2-1)
[2023-07-07] MEDS: THIAMINE 100 MG TABLET PO ONE (09:39)
[2023-07-07] MEDS: NAPH,MB-DB/K PH,MBDB POWDER PACKET PO SCH (09:40)
[2023-07-07] MEDS: amLODIPine BESYLATE 5 MG TABLET (FP) PO ONE (16:10)
[2023-07-08 07:50] LABS: BASO % 0.1 % (0-2.0); HEMATOCRIT 34.1 % (32.4-45.2); HEMOGLOBIN 11.5 GM/dL (10.7-15.3); LYMPH % 15.5 % (8-40); MCH 29.8 pg (25.7-33.7); MCHC 33.5 g/dl (32.0-36.0); MEAN CELL VOLUME 88.9 fl (80-96); MEAN PLT VOLUME 7.8 fl (7.5-11.1); MONO % 5.8 % (3.8-10.2); NEUT % 78.6 % (42.8-82.8); PLATELET COUNT 381 10^3/uL (134-434); RBC 3.84 M/mm3 (3.60-5.2); RDW 13.5 % (11.6-15.6); WHITE BLOOD COUNT 4.2 K/mm3 (4.0-10.0)
[2023-07-08 07:57] LABS: POTASSIUM 4.8 mmol/L (3.5-5.1)
[2023-07-08 08:12] LABS: ALBUMIN 2.4 g/dl (3.4-5.0); MAGNESIUM 2.2 mg/dL (1.8-2.4)
[2023-07-08 08:15] LABS: CREATININE 0.6 mg/dL (0.55-1.3); PHOSPHOROUS 2.7 mg/dL (2.5-4.9)
[2023-07-08 08:16] LABS: BILIRUBIN,TOTAL 0.2 mg/dL (0.2-1); TOT PROT 5.9 g/dl (6.4-8.2)
[2023-07-08] MEDS: amLODIPine BESYLATE 5 MG TABLET (FP) PO SCH (10:02)
[2023-07-08 16:07] VITALS: BMI 25.7
[2023-07-09 07:45] LABS: HEMATOCRIT 33.4 % (32.4-45.2); HEMOGLOBIN 11.7 GM/dL (10.7-15.3); MCH 30.5 pg (25.7-33.7); MCHC 34.9 g/dl (32.0-36.0); MEAN CELL VOLUME 87.3 fl (80-96); MEAN PLT VOLUME 7.9 fl (7.5-11.1); PLATELET COUNT 387 10^3/uL (134-434); RBC 3.83 M/mm3 (3.60-5.2); RDW 13.8 % (11.6-15.6)
[2023-07-09 08:02] LABS: POTASSIUM 4.2 mmol/L (3.5-5.1)
[2023-07-09 08:03] LABS: CALCIUM 8.6 mg/dL (8.5-10.1)
[2023-07-09 08:04] LABS: BLOOD UREA NITROGEN 15.8 mg/dL (7-18)
[2023-07-09 08:07] LABS: CREATININE 0.6 mg/dL (0.55-1.3)
[2023-07-09] MEDS: MULTIVITAMINS THER W-MINERALS COMBO TABLET (FP) PO SCH (09:40)
[2023-07-09] MEDS: AMINO ACIDS/PROTEIN HYDROLYS 30 ML LIQUID.PKT PO SCH (09:40)
[2023-07-09] MEDS: amLODIPine BESYLATE 5 MG TABLET (FP) PO ONE (19:48)
[2023-07-10 06:54] LABS: HEMATOCRIT 33.7 % (32.4-45.2); HEMOGLOBIN 11.4 GM/dL (10.7-15.3); MCH 29.9 pg (25.7-33.7); MCHC 33.8 g/dl (32.0-36.0); MEAN CELL VOLUME 88.2 fl (80-96); MEAN PLT VOLUME 7.5 fl (7.5-11.1); PLATELET COUNT 396 10^3/uL (134-434); RBC 3.82 M/mm3 (3.60-5.2); RDW 13.6 % (11.6-15.6); WHITE BLOOD COUNT 5.1 K/mm3 (4.0-10.0)
[2023-07-10 06:59] LABS: POTASSIUM 4.1 mmol/L (3.5-5.1)
[2023-07-10 07:03] LABS: BLOOD UREA NITROGEN 17.7 mg/dL (7-18); CALCIUM 8.3 mg/dL (8.5-10.1)
[2023-07-10 07:07] LABS: CREATININE 0.6 mg/dL (0.55-1.3)
[2023-07-10] MEDS: ACETAMINOPHEN 1000 MG/100 ML BAG IVPB ONE (14:08)
[2023-07-10] MEDS: DEXAMETHASONE SOD PHOSPHATE 4 MG/1 ML VIAL IVPUSH SCH (22:23)
[2023-07-11 06:36] LABS: BASO % 0.5 % (0-2.0); EOS % 0.3 % (0-4.5); HEMATOCRIT 33.6 % (32.4-45.2); HEMOGLOBIN 11.2 GM/dL (10.7-15.3); LYMPH % 28.4 % (8-40); MCH 29.7 pg (25.7-33.7); MCHC 33.4 g/dl (32.0-36.0); MEAN CELL VOLUME 88.9 fl (80-96); MEAN PLT VOLUME 7.5 fl (7.5-11.1); MONO % 7.7 % (3.8-10.2); NEUT % 63.1 % (42.8-82.8); PLATELET COUNT 415 10^3/uL (134-434); RBC 3.78 M/mm3 (3.60-5.2); RDW 13.7 % (11.6-15.6); WHITE BLOOD COUNT 6.5 K/mm3 (4.0-10.0)
[2023-07-11] MEDS ORDERED: BISACODYL 10 MG SUPP.RECT PR PRN (06:47)
[2023-07-11 06:49] LABS: POTASSIUM 4.1 mmol/L (3.5-5.1)
[2023-07-11 06:53] LABS: ALBUMIN 2.5 g/dl (3.4-5.0); BLOOD UREA NITROGEN 16.9 mg/dL (7-18); MAGNESIUM 2.4 mg/dL (1.8-2.4)
[2023-07-11 06:57] LABS: BILIRUBIN,TOTAL 0.3 mg/dL (0.2-1); TOT PROT 5.7 g/dl (6.4-8.2)
[2023-07-11 07:00] LABS: CREATININE 0.6 mg/dL (0.55-1.3)
[2023-07-11] MEDS: LEVOTHYROXINE NA 75 MCG TABLET (FP) PO SCH (08:55)
[2023-07-11] MEDS: AMINO ACIDS/PROTEIN HYDROLYS 30 ML LIQUID.PKT PO SCH (08:55)
[2023-07-11] MEDS: amLODIPine BESYLATE 5 MG TABLET (FP) PO ONE (09:00)
[2023-07-11] MEDS: amLODIPine BESYLATE 5 MG TABLET (FP) PO SCH (09:06)
[2023-07-11] MEDS: MULTIVITAMINS THER W-MINERALS COMBO TABLET (FP) PO SCH (09:06)
[2023-07-11] MEDS: metoPROLOL SUCCINATE 25 MG TAB.SR.24H (FP) PO SCH (09:06)
[2023-07-11] MEDS: FAMOTIDINE 10 MG TABLET PO SCH (09:06)
[2023-07-11] MEDS: TOPIRAMATE 25 MG TABLET PO SCH ×2 (09:06→21:26)
[2023-07-11] MEDS: SERTRALINE HCL 50 MG TABLET (FP) PO SCH (09:06)
[2023-07-11] MEDS: PANTOPRAZOLE SODIUM 40 MG VIAL IVPUSH SCH (09:07)
[2023-07-11] MEDS: POLYETHYLENE GLYCOL (HEALTHYLAX) 3350 17 GM PACKET PO SCH (09:08)
[2023-07-11] MEDS: DOCUSATE SODIUM 100 MG CAPSULE (FP) PO SCH (13:11)
[2023-07-11] MEDS: levETIRAcetam 500 MG/5 ML INJECTION VIAL IVPB SCH (16:03)
[2023-07-12] MEDS: amLODIPine BESYLATE 10 MG TABLET (FP) PO SCH (10:42)
[2023-07-13] MEDS: amLODIPine BESYLATE 5 MG TABLET (FP) PO SCH (10:13)
[2023-07-13] MEDS: LACTOBACILLUS ACIDOPHILUS 1 TABLET PO SCH ×2 (14:52→21:13)
[2023-07-13] MEDS ORDERED: VANCOMYCIN 250 MG/5 ML ORAL SOLUTION (RESTRICTED TO ID ONLY) PO SCH (18:00)
[2023-07-14 08:20] LABS: CHLORIDE 110 mmol/L (98-107); POTASSIUM 3.6 mmol/L (3.5-5.1); SODIUM 140 mmol/L (136-145)
[2023-07-14 08:22] LABS: CALCIUM 7.7 mg/dL (8.5-10.1)
[2023-07-14 08:23] LABS: ALBUMIN 2.2 g/dl (3.4-5.0); ANION GAP 5 mmol/L (4-13); BLOOD UREA NITROGEN 16.5 mg/dL (7-18); CO2 24 mmol/L (21-32); GLUCOSE,RANDOM 85 mg/dL (74-106); MAGNESIUM 2.2 mg/dL (1.8-2.4)
[2023-07-14 08:25] LABS: CREATININE 0.6 mg/dL (0.55-1.3)
[2023-07-14 08:26] LABS: PHOSPHOROUS 3.2 mg/dL (2.5-4.9); SGOT/AST 7 U/L (15-37); SGPT/ALT < 6 U/L (13-61)
[2023-07-14 08:27] LABS: BILIRUBIN,TOTAL 0.3 mg/dL (0.2-1); TOT PROT 4.9 g/dl (6.4-8.2)
[2023-07-14 08:28] LABS: ALK PHOS 64 U/L (45-117)
[2023-07-14 08:31] LABS: HEMATOCRIT 29.1 % (32.4-45.2); MCH 30.4 pg (25.7-33.7); MCHC 34.2 g/dl (32.0-36.0); MEAN CELL VOLUME 88.9 fl (80-96); MEAN PLT VOLUME 7.6 fl (7.5-11.1); PLATELET COUNT 259 10^3/uL (134-434); RBC 3.27 M/mm3 (3.60-5.2); WHITE BLOOD COUNT 5.7 K/mm3 (4.0-10.0)
[2023-07-14] MEDS: VANCOMYCIN ORAL SOLUTION 125 MG/2.5 ML PO SCH (13:24)
[2023-07-14] MEDS: ACETAMINOPHEN 325 MG TABLET (FP) PO PRN (19:50)
[2023-07-14 23:36] VITALS: RESP 18
[2023-07-15 06:44] LABS: HEMATOCRIT 27.6 % (32.4-45.2); HEMOGLOBIN 9.4 GM/dL (10.7-15.3); MCH 30.4 pg (25.7-33.7); MCHC 33.9 g/dl (32.0-36.0); MEAN CELL VOLUME 89.6 fl (80-96); MEAN PLT VOLUME 7.9 fl (7.5-11.1); PLATELET COUNT 231 10^3/uL (134-434); RBC 3.08 M/mm3 (3.60-5.2); RDW 13.6 % (11.6-15.6); WHITE BLOOD COUNT 5.2 K/mm3 (4.0-10.0)
[2023-07-15 07:06] LABS: POTASSIUM 3.7 mmol/L (3.5-5.1)
[2023-07-15 07:17] LABS: ALBUMIN 2.1 g/dl (3.4-5.0); BLOOD UREA NITROGEN 13.1 mg/dL (7-18); CALCIUM 7.6 mg/dL (8.5-10.1)
[2023-07-15 07:20] LABS: CREATININE 0.6 mg/dL (0.55-1.3); PHOSPHOROUS 2.9 mg/dL (2.5-4.9)
[2023-07-15 07:22] LABS: BILIRUBIN,TOTAL 0.4 mg/dL (0.2-1); TOT PROT 4.8 g/dl (6.4-8.2)
[2023-07-15] MEDS: LACTATED RINGERS SOLUTION 1,000 ML/1,000 ML INFUS.BAG IV SCH (12:30)
[2023-07-16 07:09] LABS: HEMATOCRIT 26.4 % (32.4-45.2); HEMOGLOBIN 8.9 GM/dL (10.7-15.3); MCH 30.1 pg (25.7-33.7); MCHC 33.6 g/dl (32.0-36.0); MEAN CELL VOLUME 89.7 fl (80-96); MEAN PLT VOLUME 7.9 fl (7.5-11.1); PLATELET COUNT 216 10^3/uL (134-434); RBC 2.95 M/mm3 (3.60-5.2)
[2023-07-16 07:19] LABS: POTASSIUM 3.8 mmol/L (3.5-5.1)
[2023-07-16 07:29] LABS: ALBUMIN 2.1 g/dl (3.4-5.0); BLOOD UREA NITROGEN 10.4 mg/dL (7-18); CALCIUM 7.9 mg/dL (8.5-10.1); MAGNESIUM 1.7 mg/dL (1.8-2.4)
[2023-07-16 07:32] LABS: BILIRUBIN,TOTAL 0.4 mg/dL (0.2-1); CREATININE 0.5 mg/dL (0.55-1.3); PHOSPHOROUS 2.6 mg/dL (2.5-4.9); TOT PROT 4.9 g/dl (6.4-8.2)
[2023-07-17 08:54] VITALS: BP 118/60; PULSE 88; TEMP 98.7
== END 2023-07-17 10:25 | DRG 25 ==
LOC: JER 10:41 → JERBED 17:10 → J7W 19:00 → OBSVTOIN 07-04 12:47 → JICU 07-05 01:03 → J4W 07-11 06:49 → J4S 07-12 23:00
PROVIDERS: ADMIT Internal Medicine; ATTEND Internal Medicine
PROC: 00C40ZZ Extirpation of Matter from Intracranial Subdural Space, Open Approach (ICD-10-PCS; principal; 2023-07-05 12:00)
DX: I62.00 Nontraumatic subdural hemorrhage, unspecified (principal); U07.1 COVID-19; A04.72 Enterocolitis due to Clostridium difficile, not specified as recurrent; A08.39 Other viral enteritis; R55 Syncope and collapse; F41.8 Other specified anxiety disorders; I10 Essential (primary) hypertension; R19.7 Diarrhea, unspecified; E03.9 Hypothyroidism, unspecified; G43.909 Migraine, unspecified, not intractable, without status migrainosus; K57.90 Diverticulosis of intestine, part unspecified, without perforation or abscess without bleeding; K44.9 Diaphragmatic hernia without obstruction or gangrene; K80.20 Calculus of gallbladder without cholecystitis without obstruction; R29.6 Repeated falls; B35.1 Tinea unguium; L60.1 Onycholysis
CPT/HCPCS: 0241U-QW; 36415; 70450-TC; 71045-TC-FY; 74018-TC-FY; 80048; 80053; 81003; 82550; 82607; 82962; 83605; 83735; 83880; 84100; 84443; 84484; 85025; 85027; 85032; 85610; 85730; 86140; 86922; 87086; 87101; 87220; 87635; 90686; 93005; 93010; 94010; 97116-GP; 99285-25; G0008; G0378; J0131; J1100

== ENCOUNTER 2023-12-26 17:41 | Emergency (ER) | payer OTHER ==
[2023-12-26 18:14] VITALS: BP 136/61; PULSE 64; RESP 18; TEMP 97.9; BMI 25.4
[2023-12-26] MEDS ORDERED: DIPHTH,PERTUSS(ACELL),TET 0.5 ML DISP.SYRIN IM ONE (19:19)
[2023-12-26] MEDS: DIPHTH,PERTUSS(ACELL),TET 0.5 ML DISP.SYRIN IM ONE (19:25)
== END 2023-12-26 22:20 | disposition home or self-care (01) ==
LOC: JER 17:41
PROC: 3E0234Z Introduction of Serum, Toxoid and Vaccine into Muscle, Percutaneous Approach (ICD-10-PCS; principal; 2023-12-26)
DX: S00.81XA Abrasion of other part of head, initial encounter (principal); M25.531 Pain in right wrist; M25.511 Pain in right shoulder; M25.561 Pain in right knee; M25.562 Pain in left knee; W19.XXXA Unspecified fall, initial encounter; Z23 Encounter for immunization
CPT/HCPCS: 70450-TC; 72125-TC; 73030-TC-RT-FY; 73110-TC-RT-FY; 73130-TC-RT-FY; 90471; 90715; 99284-25

== ENCOUNTER 2024-03-30 11:58 | Emergency (ER) | payer OTHER ==
[2024-03-30] MEDS ORDERED: ACETAMINOPHEN 500 MG TABLET (FP) ONE (13:09)
[2024-03-30 13:12] VITALS: BP 144/73; PULSE 73; RESP 19; TEMP 97.8; BMI 25.4
[2024-03-30] MEDS: ACETAMINOPHEN 500 MG TABLET (FP) PO ONE (13:13)
== END 2024-03-30 16:35 | disposition home or self-care (01) ==
LOC: JER 11:58
DX: M25.512 Pain in left shoulder (principal)
CPT/HCPCS: 73030-TC-LT-FY; 99283-25